=== PATIENT | male | born 1945 | race Caucasian/White ===

== ENCOUNTER → 2018-12-26 | Outpatient (CLI) | payer OTHER, BC ==
[~2018-12-26] MED LIST: ASPIR 8181 MG PO; BENADRYL25 MG PO; CENTRUM SILVER1 EAC4 PO; FISH OIL 1,001000 M2 PO; GLUCOSAMINE HC500 MG PO; MOBIC15 MG PO; SIMVASTATIN40 MG PO; VITAMIN C500 M2 PO; VITAMIN D31000 UNIT PO
== END ==
LOC: RAD 09:48
DX: Z08 Encounter for follow-up examination after completed treatment for malignant neoplasm (principal); Z85.820 Personal history of malignant melanoma of skin